=== PATIENT | male | born 1935 | race African-American/Black ===

== ENCOUNTER 2018-08-17 09:53 | Emergency (ER) | payer MEDICARE ==
[~2018-08-17] VITALS: Ht 170.2 cm; Wt 68.0 kg
[2018-08-17] MEDS ORDERED: FAMOTIDINE 20MG/2ML VIAL IV ONE (12:30)
[2018-08-17] MEDS ORDERED: DIPHENHYDRAMINE 50MG/ML VIAL IV ONE (12:30)
[2018-08-17] MEDS ORDERED: METHYLPREDNISOLONE SOD SUCC 125 MG/2 ML VIAL IV ONE (12:30)
[2018-08-17 13:05] LABS: BASOPHILS % 0.4 % (0.0-2.0); EOSINOPHILS % 0.2 % (0.0-5.0); HEMOGLOBIN. 12.5 g/dL (14.0-18.0); LYMPHOCYTES % 15.6 % (20.0-50.0); MEAN CORPUSCULAR HEMOGLOBIN 28.8 pg (28.0-32.0); MEAN CORPUSCULAR VOLUME 85.2 fL (80.0-94.0); MEAN PLATELET VOLUME 7.9 fl (7.4-10.4); MONOCYTES % 11.2 % (2.0-8.0); NEUTROPHILS % 72.6 % (40.0-76.0); PLATELET 220 x1000/uL (130-400); RED BLOOD CELL COUNT 4.34 mill/uL (4.7-6.1); RED CELL DISTRIBUTION WIDTH 13.6 % (11.6-14.6)
[2018-08-17 13:08] LABS: CHLORIDE 107 mEq/L (98-107)
[2018-08-17 13:11] LABS: PROTHROMBIN TIME 10.6 sec (9.6-11.0)
[2018-08-17 15:42] VITALS: BP 126/65
== END 2018-08-17 16:15 | disposition home or self-care (01) ==
LOC: ER 09:53
DX: T78.3XXA Angioneurotic edema, initial encounter (principal); T88.8XXA Other specified complications of surgical and medical care, not elsewhere classified, initial encounter; E78.00 Pure hypercholesterolemia, unspecified; I10 Essential (primary) hypertension
CPT/HCPCS: 36415; 80053; 85025; 85610; 86850; 86870; 86900; 86901; 96374; 96375; 99283; J1200; J2930; J3490

== ENCOUNTER 2019-03-19 09:21 | Inpatient (IN) | payer MEDICARE ==
[~2019-03-19] VITALS: Ht 170.2 cm; Wt 46.3 kg
[~2019-03-19 09:21] MED LIST: AMLO5TAB88 MT; ATOR20TA65 MT; CHOL500010 MT; LEVE500T98 MT; VIAG100 PO
[2019-03-19] MEDS ORDERED: PANTOPRAZOLE SODIUM 40 MG/VIAL IV STA (09:39)
[2019-03-19] MEDS ORDERED: FAMOTIDINE 20MG/2ML VIAL IV STA (09:39)
[2019-03-19] MEDS ORDERED: ONDANSETRON HCL 4MG/2ML INJ IV STA (09:39)
[2019-03-19 10:16] LABS: BASOPHILS % 0.4 % (0.0-2.0); EOSINOPHILS % 0.4 % (0.0-5.0); HEMATOCRIT. 32.4 % (42.0-52.0); HEMOGLOBIN. 10.9 g/dL (14.0-18.0); LYMPHOCYTES % 25.5 % (20.0-50.0); MEAN CORPUSCULAR HEMOGLOBIN 28.8 pg (28.0-32.0); MEAN CORPUSCULAR VOLUME 85.8 fL (80.0-94.0); MEAN PLATELET VOLUME 6.6 fl (7.4-10.4); MONOCYTES % 10.8 % (2.0-8.0); NEUTROPHILS % 62.9 % (40.0-76.0); PLATELET 361 x1000/uL (130-400); RED BLOOD CELL COUNT 3.77 mill/uL (4.7-6.1); RED CELL DISTRIBUTION WIDTH 16.9 % (11.6-14.6)
[2019-03-19 10:22] LABS: CHLORIDE 108 mEq/L (98-107); PROTHROMBIN TIME 10.7 sec (9.6-11.0)
[2019-03-19 10:26] LABS: ETHANOL BLOOD < 10 mg/dL
[2019-03-19 12:20] LABS: HEMATOCRIT 32.9 % (42.0-52.0); HEMOGLOBIN 11.1 g/dL (14.0-18.0); MEAN CORPUSCULAR HEMOGLOBIN 28.7 pg (28.0-32.0); MEAN CORPUSCULAR VOLUME 85.2 fL (80.0-94.0); PLATELET 364 x1000/uL (130-400); RED BLOOD CELL COUNT 3.86 mill/uL (4.7-6.1); RED CELL DISTRIBUTION WIDTH 16.2 % (11.6-14.6)
[2019-03-19] MEDS ORDERED: ONDANSETRON HCL 4MG/2ML INJ IV PRN (12:30)
[2019-03-19] MEDS ORDERED: ACETAMINOPHEN 325MG TABLET PO PRN (12:30)
[2019-03-19 14:42] LABS: HEMOGLOBIN 10.9 g/dL (14.0-18.0); MEAN CORPUSCULAR HEMOGLOBIN 28.7 pg (28.0-32.0); MEAN CORPUSCULAR VOLUME 86.8 fL (80.0-94.0); PLATELET 346 x1000/uL (130-400); RED BLOOD CELL COUNT 3.81 mill/uL (4.7-6.1); RED CELL DISTRIBUTION WIDTH 16.6 % (11.6-14.6)
[2019-03-19 16:08] VITALS: BP 110/68
[2019-03-19] MEDS ORDERED: PHEN100C4 PO (16:38)
[2019-03-19] MEDS ORDERED: LIP40 MT (16:38)
[2019-03-19] MEDS ORDERED: CLOP75TA4 PO (16:38)
[2019-03-19] MEDS ORDERED: CLON0.1T PO (16:38)
[2019-03-19] MEDS ORDERED: CLON0.5T MT (16:38)
[2019-03-19] MEDS ORDERED: KEPP250 MT (16:38)
[2019-03-19] MEDS ORDERED: LAMO25TA3 PO (16:38)
[2019-03-19 18:00] VITALS: BP 103/72
[2019-03-19 20:00] VITALS: BP 93/68
[2019-03-19 21:23] LABS: HEMATOCRIT 27.2 % (42.0-52.0); HEMOGLOBIN 9.5 g/dL (14.0-18.0)
[2019-03-19] MEDS: LEVETIRACETAM 500MG TABLET PO SCH (21:52)
[2019-03-19] MEDS: PANTOPRAZOLE SODIUM 40 MG/VIAL IV SCH (21:52)
[2019-03-20] VITALS: BP 91/60
[2019-03-20 04:00] VITALS: BP 105/69
[2019-03-20 06:23] LABS: BASOPHILS % 0.6 % (0.0-2.0); EOSINOPHILS % 0.2 % (0.0-5.0); HEMATOCRIT. 28.3 % (42.0-52.0); HEMOGLOBIN. 9.8 g/dL (14.0-18.0); LYMPHOCYTES % 21.9 % (20.0-50.0); MEAN CORPUSCULAR HEMOGLOBIN 29.3 pg (28.0-32.0); MONOCYTES % 7.9 % (2.0-8.0); NEUTROPHILS % 69.4 % (40.0-76.0); RED BLOOD CELL COUNT 3.33 mill/uL (4.7-6.1); RED CELL DISTRIBUTION WIDTH 15.8 % (11.6-14.6)
[2019-03-20 07:05] LABS: CHLORIDE 108 mEq/L (98-107)
[2019-03-20 07:31] LABS: PLATELET 284 x1000/uL (130-400)
[2019-03-20 08:00] VITALS: BP 105/74
[2019-03-20 09:05] LABS: CLARITY URINE CLEAR (CLEAR); COLOR URINE DARK YELLOW (YELLOW); KETONES URINE TRACE (NEGATIVE); LEUKOCYTE ESTERASE URINE NEGATIVE (NEGATIVE); NITRITE URINE NEGATIVE (NEGATIVE); OCCULT BLOOD URINE 2+ (NEGATIVE); PROTEIN URINE 1+ (NEGATIVE); SPECIFIC GRAVITY URINE 1.029 (1.005-1.030)
[2019-03-20] MEDS: LEVETIRACETAM 500MG TABLET PO SCH ×2 (09:23→21:57)
[2019-03-20] MEDS: PANTOPRAZOLE SODIUM 40 MG/VIAL IV SCH ×2 (09:23→21:57)
[2019-03-20 12:00] VITALS: BP 124/77
[2019-03-20] MEDS ORDERED: DIATR MEGLU/DIATRIZOATE SOLN 30ML PO SCH ×2 (15:00)
[2019-03-20] MEDS: CEFTRIAXONE 1 G PREMIX 50 ML IV SCH (15:14)
[2019-03-20 16:00] VITALS: BP 104/55
[2019-03-20 18:57] LABS: HEMATOCRIT 27.6 % (42.0-52.0); HEMOGLOBIN 9.4 g/dL (14.0-18.0); MEAN CORPUSCULAR HEMOGLOBIN 29.2 pg (28.0-32.0); PLATELET 315 x1000/uL (130-400); RED BLOOD CELL COUNT 3.21 mill/uL (4.7-6.1); RED CELL DISTRIBUTION WIDTH 15.9 % (11.6-14.6)
[2019-03-20 20:00] VITALS: BP 118/78
[2019-03-21] VITALS: BP 116/64
[2019-03-21 04:00] VITALS: BP 118/66
[2019-03-21 06:57] LABS: CHLORIDE 107 mEq/L (98-107)
[2019-03-21 07:08] LABS: BASOPHILS % 0.4 % (0.0-2.0); EOSINOPHILS % 0.3 % (0.0-5.0); HEMATOCRIT. 24.6 % (42.0-52.0); HEMOGLOBIN. 8.4 g/dL (14.0-18.0); LYMPHOCYTES % 18.9 % (20.0-50.0); MEAN CORPUSCULAR HEMOGLOBIN 29.3 pg (28.0-32.0); MEAN CORPUSCULAR VOLUME 85.6 fL (80.0-94.0); MEAN PLATELET VOLUME 7.1 fl (7.4-10.4); NEUTROPHILS % 69.4 % (40.0-76.0); PLATELET 285 x1000/uL (130-400); RED BLOOD CELL COUNT 2.88 mill/uL (4.7-6.1); RED CELL DISTRIBUTION WIDTH 15.6 % (11.6-14.6)
[2019-03-21 08:00] VITALS: BP 112/67
[2019-03-21] MEDS: LEVETIRACETAM 500MG TABLET PO SCH ×2 (09:42→22:14)
[2019-03-21] MEDS: PANTOPRAZOLE SODIUM 40 MG/VIAL IV SCH ×2 (09:42→22:13)
[2019-03-21 11:12] LABS: HEPATITIS B SURFACE ANTIGEN NEGATIVE
[2019-03-21 11:42] LABS: HEPATITIS A AB IGM NEGATIVE (NEGATIVE)
[2019-03-21 12:00] VITALS: BP 114/67
[2019-03-21] MEDS: CEFTRIAXONE 1 G PREMIX 50 ML IV SCH (15:22)
[2019-03-21 16:00] VITALS: BP 132/75
[2019-03-21] MEDS ORDERED: SORBITOL 70% SOLN 30ML PO NR ×3 (16:00→20:00)
[2019-03-21 19:40] LABS: HEMATOCRIT 25.8 % (42.0-52.0); HEMOGLOBIN 8.7 g/dL (14.0-18.0); MEAN CORPUSCULAR HEMOGLOBIN 29.3 pg (28.0-32.0); MEAN CORPUSCULAR VOLUME 86.5 fL (80.0-94.0); PLATELET 333 x1000/uL (130-400); RED BLOOD CELL COUNT 2.98 mill/uL (4.7-6.1); RED CELL DISTRIBUTION WIDTH 15.3 % (11.6-14.6)
[2019-03-21 20:00] VITALS: BP 100/60
[2019-03-22] VITALS (7 sets, daily range): BP systolic 11–130; BP diastolic 54–77
[2019-03-22 06:05] LABS: BASOPHILS % 0.3 % (0.0-2.0); EOSINOPHILS % 0.3 % (0.0-5.0); HEMATOCRIT. 25.8 % (42.0-52.0); HEMOGLOBIN. 8.8 g/dL (14.0-18.0); LYMPHOCYTES % 20.8 % (20.0-50.0); MEAN CORPUSCULAR HEMOGLOBIN 29.4 pg (28.0-32.0); MEAN CORPUSCULAR VOLUME 85.8 fL (80.0-94.0); MEAN PLATELET VOLUME 6.9 fl (7.4-10.4); MONOCYTES % 11.5 % (2.0-8.0); NEUTROPHILS % 67.1 % (40.0-76.0); PLATELET 303 x1000/uL (130-400); RED CELL DISTRIBUTION WIDTH 15.7 % (11.6-14.6)
[2019-03-22 06:12] LABS: CHLORIDE 111 mEq/L (98-107)
[2019-03-22 06:31] LABS: INR 1.1; PARTIAL THROMBOPLASTIN TIME 25.2 sec (23.4-31.0); PROTHROMBIN TIME 11.4 sec (9.6-11.0)
[2019-03-22] MEDS: PANTOPRAZOLE SODIUM 40 MG/VIAL IV SCH ×2 (08:28→21:55)
[2019-03-22] MEDS: LEVETIRACETAM 500MG TABLET PO SCH ×2 (08:28→21:55)
[2019-03-22] MEDS: CEFTRIAXONE 1 G PREMIX 50 ML IV SCH (13:38)
[2019-03-22] MEDS ORDERED: SIMETHICONE 40 MG/0.6 ML 30ML ONE (15:52)
[2019-03-22] MEDS ORDERED: MIDAZOLAM HCL 5 MG/5 ML VIAL IV PRN (16:01)
[2019-03-22] MEDS ORDERED: MIDAZOLAM HCL 5 MG/5 ML VIAL ONE (16:03)
[2019-03-22] MEDS ORDERED: FENTANYL CITRATE/PF 50MCG/ML 2ML VIAL ONE (16:03)
[2019-03-23] VITALS: BP 118/69
[2019-03-23 04:00] VITALS: BP 115/67
[2019-03-23 06:37] LABS: BASOPHILS % 0.3 % (0.0-2.0); EOSINOPHILS % 0.5 % (0.0-5.0); HEMATOCRIT. 25.1 % (42.0-52.0); HEMOGLOBIN. 8.5 g/dL (14.0-18.0); LYMPHOCYTES % 17.4 % (20.0-50.0); MEAN CORPUSCULAR HEMOGLOBIN 29.4 pg (28.0-32.0); MEAN CORPUSCULAR VOLUME 86.8 fL (80.0-94.0); MEAN PLATELET VOLUME 6.8 fl (7.4-10.4); MONOCYTES % 9.5 % (2.0-8.0); NEUTROPHILS % 72.3 % (40.0-76.0); PLATELET 315 x1000/uL (130-400); RED BLOOD CELL COUNT 2.89 mill/uL (4.7-6.1); RED CELL DISTRIBUTION WIDTH 15.5 % (11.6-14.6)
[2019-03-23 06:43] LABS: CHLORIDE 114 mEq/L (98-107)
[2019-03-23 09:06] VITALS: BP 118/70
[2019-03-23] MEDS: LEVETIRACETAM 500MG TABLET PO SCH ×2 (09:09→21:34)
[2019-03-23] MEDS: PANTOPRAZOLE SODIUM 40 MG/VIAL IV SCH ×2 (09:09→21:33)
[2019-03-23] MEDS: DEXT 5%/LACTATED RINGERS 1,000 ML IV SCH (11:00)
[2019-03-23 12:00] VITALS: BP 132/71
[2019-03-23] MEDS: SORBITOL 70% SOLN 30ML PO SCH ×2 (14:58→18:55)
[2019-03-23] MEDS: CEFTRIAXONE 1 G PREMIX 50 ML IV SCH (15:46)
[2019-03-23 16:00] VITALS: BP 130/55
[2019-03-23] MEDS ORDERED: BISACODYL 10MG SUPP PR SCH ×2 (16:45→22:00)
[2019-03-23] MEDS ORDERED: MINERAL OIL ENEMA 133ML PR SCH (18:00)
[2019-03-23] MEDS ORDERED: MAGNESIUM CITRATE 300ML SOLUTION PO SCH (18:00)
[2019-03-23 20:00] VITALS: BP 109/91
[2019-03-24] VITALS: BP 104/86
[2019-03-24] MEDS: DEXT 5%/LACTATED RINGERS 1,000 ML IV SCH (00:50)
[2019-03-24] MEDS: SORBITOL 70% SOLN 30ML PO SCH ×2 (00:55→06:29)
[2019-03-24 04:00] VITALS: BP 115/60
[2019-03-24 06:57] LABS: BASOPHILS % 0.2 % (0.0-2.0); EOSINOPHILS % 0.2 % (0.0-5.0); HEMATOCRIT. 26.2 % (42.0-52.0); HEMOGLOBIN. 8.7 g/dL (14.0-18.0); LYMPHOCYTES % 12.4 % (20.0-50.0); MEAN CORPUSCULAR HEMOGLOBIN 28.9 pg (28.0-32.0); MEAN CORPUSCULAR VOLUME 87.3 fL (80.0-94.0); MEAN PLATELET VOLUME 6.9 fl (7.4-10.4); MONOCYTES % 8.4 % (2.0-8.0); NEUTROPHILS % 78.8 % (40.0-76.0); PLATELET 366 x1000/uL (130-400); RED CELL DISTRIBUTION WIDTH 15.6 % (11.6-14.6)
[2019-03-24 07:09] LABS: CHLORIDE 121 mEq/L (98-107)
[2019-03-24] MEDS: LEVETIRACETAM 500MG TABLET PO SCH ×2 (07:51→21:20)
[2019-03-24 08:00] VITALS: BP 133/91
[2019-03-24] MEDS: PANTOPRAZOLE SODIUM 40 MG/VIAL IV SCH ×2 (08:25→21:20)
[2019-03-24] MEDS ORDERED: DEXT 5%/LACTATED RINGERS 1,000 ML IV SCH (09:00)
[2019-03-24] MEDS ORDERED: NA PHOS,M-B/NA PHOS,DI-BA ENEMA 118ML PR NR ×2 (11:45→14:45)
[2019-03-24 12:00] VITALS: BP 114/75
[2019-03-24] MEDS ORDERED: DEXTROSE 5% WATER 1,000 ML IV SCH (13:30)
[2019-03-24] MEDS: DEXTROSE 5% WATER 1,000 ML IV SCH (15:11)
[2019-03-24] MEDS: CEFTRIAXONE 1 G PREMIX 50 ML IV SCH (15:12)
[2019-03-24] MEDS ORDERED: FENTANYL CITRATE/PF 50MCG/ML 2ML VIAL ONE (16:21)
[2019-03-24] MEDS ORDERED: MIDAZOLAM HCL 5 MG/5 ML VIAL IV PRN (16:21)
[2019-03-24] MEDS ORDERED: MIDAZOLAM HCL 5 MG/5 ML VIAL ONE (16:21)
[2019-03-24 18:10] VITALS: BP 141/79
[2019-03-24 20:00] VITALS: BP 133/76
[2019-03-25] VITALS: BP 127/68
[2019-03-25 04:00] VITALS: BP 114/65
[2019-03-25] MEDS: DEXTROSE 5% WATER 1,000 ML IV SCH ×2 (05:44→18:23)
[2019-03-25 06:49] LABS: SODIUM URINE RANDOM 8 mEq/L
[2019-03-25 07:47] LABS: BASOPHILS % 0.4 % (0.0-2.0); EOSINOPHILS % 0.8 % (0.0-5.0); HEMATOCRIT. 24.3 % (42.0-52.0); LYMPHOCYTES % 15.6 % (20.0-50.0); MEAN CORPUSCULAR HEMOGLOBIN 29.2 pg (28.0-32.0); MEAN CORPUSCULAR VOLUME 88.5 fL (80.0-94.0); MEAN PLATELET VOLUME 6.9 fl (7.4-10.4); MONOCYTES % 10.8 % (2.0-8.0); NEUTROPHILS % 72.4 % (40.0-76.0); PLATELET 309 x1000/uL (130-400); RED BLOOD CELL COUNT 2.74 mill/uL (4.7-6.1); RED CELL DISTRIBUTION WIDTH 15.8 % (11.6-14.6)
[2019-03-25 08:00] VITALS: BP 120/67
[2019-03-25 08:22] LABS: CHLORIDE 125 mEq/L (98-107)
[2019-03-25 08:30] LABS: PHOSPHORUS 3.9 mg/dL (2.5-4.9)
[2019-03-25] MEDS: PANTOPRAZOLE SODIUM 40 MG/VIAL IV SCH ×2 (09:39→22:25)
[2019-03-25] MEDS: LEVETIRACETAM 500MG TABLET PO SCH ×2 (09:39→22:26)
[2019-03-25 12:00] VITALS: BP 144/66
[2019-03-25] MEDS ORDERED: KCL 20MEQ/100ML PREMIX 100 ML IV NR (14:00)
[2019-03-25 16:00] VITALS: BP 142/72
[2019-03-25] MEDS: CEFTRIAXONE 1 G PREMIX 50 ML IV SCH (17:40)
[2019-03-25 20:00] VITALS: BP_SYST 112; BP_SYST 115; BP_DIAS 58; BP_DIAS 72
[2019-03-26] VITALS: BP 115/72
[2019-03-26 04:00] VITALS: BP 99/70
[2019-03-26] MEDS: DEXTROSE 5% WATER 1,000 ML IV SCH ×2 (06:15→21:34)
[2019-03-26 06:59] LABS: BASOPHILS % 0.3 % (0.0-2.0); EOSINOPHILS % 0.7 % (0.0-5.0); HEMATOCRIT. 24.8 % (42.0-52.0); HEMOGLOBIN. 8.1 g/dL (14.0-18.0); LYMPHOCYTES % 13.4 % (20.0-50.0); MEAN CORPUSCULAR HEMOGLOBIN 28.9 pg (28.0-32.0); MEAN CORPUSCULAR VOLUME 88.1 fL (80.0-94.0); MONOCYTES % 7.8 % (2.0-8.0); NEUTROPHILS % 77.8 % (40.0-76.0); PLATELET 320 x1000/uL (130-400); RED BLOOD CELL COUNT 2.81 mill/uL (4.7-6.1); RED CELL DISTRIBUTION WIDTH 16.3 % (11.6-14.6)
[2019-03-26 07:48] LABS: CHLORIDE 121 mEq/L (98-107)
[2019-03-26 07:56] LABS: PHOSPHORUS 3.3 mg/dL (2.5-4.9)
[2019-03-26 08:00] VITALS: BP 128/69
[2019-03-26] MEDS: DOCUSATE SODIUM SUGAR FREE 100MG/10ML UDC NG SCH (10:09)
[2019-03-26] MEDS: LEVETIRACETAM 500MG TABLET PO SCH ×2 (10:09→21:33)
[2019-03-26] MEDS: PANTOPRAZOLE SODIUM 40 MG/VIAL IV SCH ×2 (10:10→21:33)
[2019-03-26 12:00] VITALS: BP 124/73
[2019-03-26] MEDS ORDERED: POTASSIUM CHLORIDE 20MEQ TABLET SR PO NR (13:30)
[2019-03-26] MEDS: CEFTRIAXONE 1 G PREMIX 50 ML IV SCH (14:52)
[2019-03-26 16:00] VITALS: BP 114/60
[2019-03-26 23:58] VITALS: BP 128/81
[2019-03-27 04:44] VITALS: BP 120/69
[2019-03-27 07:21] LABS: BASOPHILS % 0.3 % (0.0-2.0); EOSINOPHILS % 1.6 % (0.0-5.0); HEMATOCRIT. 26.8 % (42.0-52.0); HEMOGLOBIN. 8.9 g/dL (14.0-18.0); LYMPHOCYTES % 16.4 % (20.0-50.0); MEAN CORPUSCULAR HEMOGLOBIN 29.3 pg (28.0-32.0); MEAN CORPUSCULAR VOLUME 87.9 fL (80.0-94.0); MEAN PLATELET VOLUME 6.9 fl (7.4-10.4); MONOCYTES % 7.7 % (2.0-8.0); PLATELET 330 x1000/uL (130-400); RED BLOOD CELL COUNT 3.05 mill/uL (4.7-6.1); RED CELL DISTRIBUTION WIDTH 16.2 % (11.6-14.6)
[2019-03-27 07:31] LABS: CHLORIDE 116 mEq/L (98-107)
[2019-03-27 08:00] VITALS: BP 138/76
[2019-03-27] MEDS: LEVETIRACETAM 500MG TABLET PO SCH ×2 (09:10→21:34)
[2019-03-27] MEDS: DOCUSATE SODIUM SUGAR FREE 100MG/10ML UDC NG SCH (09:11)
[2019-03-27] MEDS: PANTOPRAZOLE SODIUM 40 MG/VIAL IV SCH ×3 (09:16→21:34)
[2019-03-27] MEDS: DEXTROSE 5% WATER 1,000 ML IV SCH ×2 (09:25→21:35)
[2019-03-27 12:00] VITALS: BP 127/76
[2019-03-27 16:00] VITALS: BP 134/75
[2019-03-27] MEDS: CEFTRIAXONE 1 G PREMIX 50 ML IV SCH (17:52)
[2019-03-27] MEDS: ZINC SULFATE 220 MG ( 50 ) CAPSULE PO SCH (17:59)
[2019-03-27] MEDS: ASCORBIC ACID 500 MG TABLET PO SCH (17:59)
[2019-03-27 20:00] VITALS: BP 144/81
[2019-03-28] VITALS: BP 136/82
[2019-03-28 04:00] VITALS: BP 130/85
[2019-03-28 06:40] LABS: BASOPHILS % 0.4 % (0.0-2.0); EOSINOPHILS % 2.3 % (0.0-5.0); HEMATOCRIT. 24.5 % (42.0-52.0); HEMOGLOBIN. 8.5 g/dL (14.0-18.0); LYMPHOCYTES % 14.9 % (20.0-50.0); MEAN CORPUSCULAR HEMOGLOBIN 30.5 pg (28.0-32.0); MONOCYTES % 6.8 % (2.0-8.0); NEUTROPHILS % 75.6 % (40.0-76.0); PLATELET 296 x1000/uL (130-400); RED BLOOD CELL COUNT 2.78 mill/uL (4.7-6.1); RED CELL DISTRIBUTION WIDTH 16.5 % (11.6-14.6)
[2019-03-28 07:35] LABS: CHLORIDE 114 mEq/L (98-107)
[2019-03-28 07:45] LABS: PHOSPHORUS 2.7 mg/dL (2.5-4.9)
[2019-03-28 08:00] VITALS: BP 115/67
[2019-03-28] MEDS: LEVETIRACETAM 500MG TABLET PO SCH (09:34)
[2019-03-28] MEDS: ZINC SULFATE 220 MG ( 50 ) CAPSULE PO SCH (09:34)
[2019-03-28] MEDS: ASCORBIC ACID 500 MG TABLET PO SCH (09:34)
[2019-03-28] MEDS: DOCUSATE SODIUM SUGAR FREE 100MG/10ML UDC NG SCH (09:34)
[2019-03-28] MEDS: PANTOPRAZOLE SODIUM 40 MG/VIAL IV SCH (09:34)
[2019-03-28 11:17] VITALS: BP 115/67
[2019-03-28 12:00] VITALS: BP 151/87
== END 2019-03-28 14:38 | DRG 377 ==
LOC: ER 09:21 → 5EST 11:09 → EDBEDREQSVC 11:15 → EDBEDREQ 11:15 → EDBEDREQSVC 12:06 → EDBEDREQ 12:06 → ENRESERV 12:32 → CANRESERV 12:32 → ENRESERV 15:12 → 7WST 03-22 13:00
PROVIDERS: ADMIT Internal Medicine; ATTEND Internal Medicine
PROC: 30233N1 Transfusion of Nonautologous Red Blood Cells into Peripheral Vein, Percutaneous Approach (ICD-10-PCS; 2019-03-19)
PROC: 0DJD8ZZ Inspection of Lower Intestinal Tract, Via Natural or Artificial Opening Endoscopic (ICD-10-PCS; principal; 2019-03-22)
PROC: 0DBH8ZZ Excision of Cecum, Via Natural or Artificial Opening Endoscopic (ICD-10-PCS; 2019-03-24)
PROC: 0DBN8ZZ Excision of Sigmoid Colon, Via Natural or Artificial Opening Endoscopic (ICD-10-PCS; 2019-03-24)
DX: K57.31 Diverticulosis of large intestine without perforation or abscess with bleeding (principal); E43 Unspecified severe protein-calorie malnutrition; E87.0 Hyperosmolality and hypernatremia; K62.6 Ulcer of anus and rectum; Z68.1 Body mass index [BMI] 19.9 or less, adult; E78.5 Hyperlipidemia, unspecified; E87.8 Other disorders of electrolyte and fluid balance, not elsewhere classified; F03.90 Unspecified dementia, unspecified severity, without behavioral disturbance, psychotic disturbance, mood disturbance, and anxiety; D64.9 Anemia, unspecified; K75.3 Granulomatous hepatitis, not elsewhere classified; E78.00 Pure hypercholesterolemia, unspecified; E87.6 Hypokalemia; G40.909 Epilepsy, unspecified, not intractable, without status epilepticus; N18.1 Chronic kidney disease, stage 1; K76.89 Other specified diseases of liver; I12.9 Hypertensive chronic kidney disease with stage 1 through stage 4 chronic kidney disease, or unspecified chronic kidney disease; K63.5 Polyp of colon; K64.8 Other hemorrhoids; K76.0 Fatty (change of) liver, not elsewhere classified; Z59.0 Homelessness; Z82.49 Family history of ischemic heart disease and other diseases of the circulatory system; Z86.73 Personal history of transient ischemic attack (TIA), and cerebral infarction without residual deficits; Z84.89 Family history of other specified conditions; Z79.899 Other long term (current) drug therapy
CPT/HCPCS: 36415; 71045; 74176; 76700; 80048; 80053; 80076; 80320; 81003; 82270; 82962; 83735; 83880; 83930; 83935; 84100; 84132; 84134; 84295; 84300; 84484; 85014; 85018; 85025; 85027; 86301; 86705; 86709; 86803; 86850; 86870; 86900; 86920; 87340; 88305; 92610; 93005; 96365; 96375; 99285; A6261; C1893; C9113; J0696; J2250; J2405; J3010; J3480; J3490; J7040; J7042; J7070; J7121; P9021; Q9963; G0480

== ENCOUNTER 2019-05-31 19:39 | Inpatient (IN) | payer MEDICARE, MEDICAID ==
[~2019-05-31] VITALS: Ht 170.2 cm; Wt 59.0 kg
[~2019-05-31 19:39] MED LIST changes: +CLON0.1T PO; +CLON0.5T MT; +LAMO25TA3 PO; +PHEN100C4 PO
[2019-05-31] MEDS ORDERED: SODIUM CHLORIDE 0.9% 1,000 ML IV ONE (20:20)
[2019-05-31 20:56] LABS: CHLORIDE 101 mEq/L (98-107)
[2019-05-31 21:01] LABS: BASOPHILS % 0.8 % (0.0-2.0); EOSINOPHILS % 0.7 % (0.0-5.0); HEMATOCRIT. 33.1 % (42.0-52.0); HEMOGLOBIN. 11.1 g/dL (14.0-18.0); LYMPHOCYTES % 17.8 % (20.0-50.0); MEAN CORPUSCULAR HEMOGLOBIN 30.1 pg (28.0-32.0); MEAN CORPUSCULAR VOLUME 89.6 fL (80.0-94.0); MONOCYTES % 9.6 % (2.0-8.0); NEUTROPHILS % 71.1 % (40.0-76.0); PLATELET 280 x1000/uL (130-400); RED BLOOD CELL COUNT 3.69 mill/uL (4.7-6.1); RED CELL DISTRIBUTION WIDTH 15.2 % (11.6-14.6)
[2019-05-31 21:46] LABS: CLARITY URINE CLEAR (CLEAR); COLOR URINE YELLOW (YELLOW); KETONES URINE NEGATIVE (NEGATIVE); LEUKOCYTE ESTERASE URINE NEGATIVE (NEGATIVE); NITRITE URINE NEGATIVE (NEGATIVE); OCCULT BLOOD URINE 3+ (NEGATIVE); PH URINE 5.5 (4.5-8.0); PROTEIN URINE TRACE (NEGATIVE); SPECIFIC GRAVITY URINE 1.017 (1.005-1.030); UROBILINOGEN URINE 0.2 E.U./dL (0.2-1.0)
[2019-06-01 06:53] LABS: BASOPHILS % 0.5 % (0.0-2.0); EOSINOPHILS % 0.9 % (0.0-5.0); HEMATOCRIT. 27.3 % (42.0-52.0); HEMOGLOBIN. 9.3 g/dL (14.0-18.0); LYMPHOCYTES % 20.4 % (20.0-50.0); MEAN CORPUSCULAR VOLUME 87.9 fL (80.0-94.0); MEAN PLATELET VOLUME 6.8 fl (7.4-10.4); MONOCYTES % 11.2 % (2.0-8.0); PLATELET 238 x1000/uL (130-400); RED CELL DISTRIBUTION WIDTH 14.8 % (11.6-14.6)
[2019-06-01 06:55] LABS: CHLORIDE 105 mEq/L (98-107)
[2019-06-01] MEDS: SODIUM CHLORIDE 0.9% 1,000 ML IV SCH ×2 (07:00→22:04)
[2019-06-01] MEDS ORDERED: ONDANSETRON HCL 4MG/2ML INJ IV PRN (16:45)
[2019-06-01] MEDS ORDERED: CLONIDINE 0.1MG TABLET PO PRN (16:45)
[2019-06-01] MEDS ORDERED: GUAIFENESIN 200MG/10ML SUGAR FREE UDC PO PRN (16:45)
[2019-06-01] MEDS ORDERED: ACETAMINOPHEN 325MG TABLET PO PRN (16:45)
[2019-06-01] MEDS ORDERED: HYDROCODONE/ACETAMINOPHEN 5/325MG TABLET PO PRN (18:06)
[2019-06-01] MEDS ORDERED: LEVETIRACETAM 250MG TABLET PO NR (18:07)
[2019-06-01] MEDS ORDERED: LAMOTRIGINE 25MG TABLET PO NR (18:08)
[2019-06-01] MEDS ORDERED: LACTULOSE 20G/30ML UDC PO NR (18:10)
[2019-06-01 21:10] VITALS: BP 129/64
[2019-06-01 21:20] VITALS: BP 129/64
[2019-06-01] MEDS: PHENYTOIN SODIUM EXTENDED 100MG CAPSULE PO SCH (22:03)
[2019-06-01] MEDS: CLONAZEPAM 0.5MG TABLET PO SCH (22:03)
[2019-06-01] MEDS: LACTULOSE 20G/30ML UDC PO SCH (22:03)
[2019-06-01] MEDS ORDERED: FOLI-43 PO (23:57)
[2019-06-01] MEDS ORDERED: TOPUD PO (23:57)
[2019-06-01] MEDS ORDERED: LORA-250 IM (23:57)
[2019-06-01] MEDS ORDERED: IPRA3AMP31 IH (23:57)
[2019-06-01] MEDS ORDERED: FERR325T6 PO (23:57)
[2019-06-01] MEDS ORDERED: HYDR-3281 PO (23:57)
[2019-06-02] VITALS: BP 118/76
[2019-06-02 04:00] VITALS: BP 139/79
[2019-06-02] MEDS: LACTULOSE 20G/30ML UDC PO SCH ×3 (05:36→21:14)
[2019-06-02 07:50] LABS: BASOPHILS % 0.5 % (0.0-2.0); EOSINOPHILS % 0.9 % (0.0-5.0); HEMATOCRIT. 30.2 % (42.0-52.0); HEMOGLOBIN. 10.1 g/dL (14.0-18.0); LYMPHOCYTES % 18.9 % (20.0-50.0); MEAN CORPUSCULAR HEMOGLOBIN 29.9 pg (28.0-32.0); MEAN PLATELET VOLUME 7.2 fl (7.4-10.4); MONOCYTES % 9.2 % (2.0-8.0); NEUTROPHILS % 70.5 % (40.0-76.0); PLATELET 257 x1000/uL (130-400); RED BLOOD CELL COUNT 3.39 mill/uL (4.7-6.1); RED CELL DISTRIBUTION WIDTH 14.8 % (11.6-14.6)
[2019-06-02 08:00] VITALS: BP 140/78
[2019-06-02 08:50] LABS: CHLORIDE 106 mEq/L (98-107)
[2019-06-02 08:55] LABS: PHOSPHORUS 3.3 mg/dL (2.5-4.9)
[2019-06-02] MEDS: PHENYTOIN SODIUM EXTENDED 100MG CAPSULE PO SCH ×3 (08:55→16:30)
[2019-06-02] MEDS: LAMOTRIGINE 25MG TABLET PO SCH (08:55)
[2019-06-02] MEDS: LEVETIRACETAM 250MG TABLET PO SCH ×2 (08:55→21:14)
[2019-06-02] MEDS: SODIUM CHLORIDE 0.9% 1,000 ML IV SCH (11:19)
[2019-06-02 12:00] VITALS: BP 127/67
[2019-06-02] MEDS ORDERED: POLY119P2 MT (14:51)
[2019-06-02 16:00] VITALS: BP 123/78
[2019-06-02] MEDS: CLONAZEPAM 0.5MG TABLET PO SCH (21:14)
[2019-06-02 22:29] VITALS: BP 113/66
[2019-06-03] VITALS: BP 124/67
[2019-06-03] MEDS: SODIUM CHLORIDE 0.9% 1,000 ML IV SCH ×2 (01:56→12:29)
[2019-06-03 04:00] VITALS: BP 130/69
[2019-06-03] MEDS: LACTULOSE 20G/30ML UDC PO SCH ×4 (06:00→21:00)
[2019-06-03 08:00] VITALS: BP 122/74
[2019-06-03] MEDS: LAMOTRIGINE 25MG TABLET PO SCH (08:20)
[2019-06-03] MEDS: PHENYTOIN SODIUM EXTENDED 100MG CAPSULE PO SCH ×3 (08:20→16:42)
[2019-06-03] MEDS: LEVETIRACETAM 250MG TABLET PO SCH ×2 (08:20→20:55)
[2019-06-03 12:00] VITALS: BP 129/70
[2019-06-03 15:57] VITALS: BP 134/90
[2019-06-03 20:00] VITALS: BP 136/77
[2019-06-03] MEDS: CLONAZEPAM 0.5MG TABLET PO SCH (20:55)
[2019-06-04] VITALS: BP 122/71
[2019-06-04] MEDS: SODIUM CHLORIDE 0.9% 1,000 ML IV SCH ×2 (02:51→12:58)
[2019-06-04 04:00] VITALS: BP 158/87
[2019-06-04] MEDS: LACTULOSE 20G/30ML UDC PO SCH (05:47)
[2019-06-04 08:00] VITALS: BP 133/71
[2019-06-04] MEDS: LEVETIRACETAM 250MG TABLET PO SCH ×2 (09:00→20:11)
[2019-06-04] MEDS: PHENYTOIN SODIUM EXTENDED 100MG CAPSULE PO SCH ×3 (09:00→17:02)
[2019-06-04] MEDS: LAMOTRIGINE 25MG TABLET PO SCH (09:00)
[2019-06-04 12:00] VITALS: BP 133/84
[2019-06-04 16:00] VITALS: BP 128/80
[2019-06-04] MEDS: CLONAZEPAM 0.5MG TABLET PO SCH (20:11)
[2019-06-04 21:19] VITALS: BP 124/69
[2019-06-05] VITALS: BP 126/70
[2019-06-05] MEDS: SODIUM CHLORIDE 0.9% 1,000 ML IV SCH ×2 (02:24→14:12)
[2019-06-05 04:00] VITALS: BP 132/89
[2019-06-05 08:01] VITALS: BP 136/76
[2019-06-05] MEDS: PHENYTOIN SODIUM EXTENDED 100MG CAPSULE PO SCH ×3 (08:49→17:49)
[2019-06-05] MEDS: LEVETIRACETAM 250MG TABLET PO SCH ×2 (08:49→21:30)
[2019-06-05] MEDS: LAMOTRIGINE 25MG TABLET PO SCH (08:49)
[2019-06-05 12:00] VITALS: BP 129/72
[2019-06-05 16:00] VITALS: BP 121/74
[2019-06-05 20:00] VITALS: BP 132/78
[2019-06-05] MEDS: CLONAZEPAM 0.5MG TABLET PO SCH (21:30)
[2019-06-06] VITALS: BP 158/89
[2019-06-06 04:00] VITALS: BP 159/80
[2019-06-06] MEDS: SODIUM CHLORIDE 0.9% 1,000 ML IV SCH ×2 (06:11→14:43)
[2019-06-06 08:00] VITALS: BP 137/79
[2019-06-06] MEDS: PHENYTOIN SODIUM EXTENDED 100MG CAPSULE PO SCH ×3 (09:02→17:31)
[2019-06-06] MEDS: LEVETIRACETAM 250MG TABLET PO SCH (09:02)
[2019-06-06] MEDS: LAMOTRIGINE 25MG TABLET PO SCH (09:02)
[2019-06-06 12:00] VITALS: BP 149/89
[2019-06-06 16:00] VITALS: BP 133/72
[2019-06-06 17:51] VITALS: BP 133/72
== END 2019-06-06 19:35 | DRG 391 ==
LOC: ER 19:39 → 5WST 06-01 01:56 → EDBEDREQ 06-01 01:59 → EDBEDREQDT 06-01 01:59 → EDBEDREQTM 06-01 01:59 → ENRESERV 06-01 19:05
PROVIDERS: ADMIT Internal Medicine; ATTEND Internal Medicine
DX: K59.00 Constipation, unspecified (principal); E43 Unspecified severe protein-calorie malnutrition; N40.0 Benign prostatic hyperplasia without lower urinary tract symptoms; E86.0 Dehydration; R31.9 Hematuria, unspecified; D64.9 Anemia, unspecified; E78.5 Hyperlipidemia, unspecified; F03.90 Unspecified dementia, unspecified severity, without behavioral disturbance, psychotic disturbance, mood disturbance, and anxiety; G40.909 Epilepsy, unspecified, not intractable, without status epilepticus; J84.10 Pulmonary fibrosis, unspecified; N28.1 Cyst of kidney, acquired; Z96.89 Presence of other specified functional implants; D71 Functional disorders of polymorphonuclear neutrophils; D72.821 Monocytosis (symptomatic); E78.00 Pure hypercholesterolemia, unspecified; K21.9 Gastro-esophageal reflux disease without esophagitis; I11.9 Hypertensive heart disease without heart failure; K76.89 Other specified diseases of liver; Z86.73 Personal history of transient ischemic attack (TIA), and cerebral infarction without residual deficits; Z74.01 Bed confinement status; Z79.899 Other long term (current) drug therapy
CPT/HCPCS: 36415; 71045; 74176; 80048; 80053; 81003; 83735; 83880; 84100; 84484; 85025; 93005; 97110; 97162; 97530; 99284; 99285; J7030

== ENCOUNTER 2019-08-26 16:40 | Inpatient (IN) | payer MEDICARE, MEDICAID ==
[~2019-08-26] VITALS: Ht 185.4 cm; Wt 69.9 kg
[~2019-08-26 16:40] MED LIST changes: -AMLO5TAB88 MT; -ATOR20TA65 MT; -CHOL500010 MT; -CLON0.5T MT; +FERR325T6 PO; +FOLI-43 PO; +HYDR-3281 PO; +IPRA3AMP31 IH; +LORA-250 IM; +POLY119P2 MT; +TOPUD PO; -VIAG100 PO
[2019-08-26] MEDS ORDERED: SODIUM CHLORIDE 0.9% 1000ML BAG (SEPSIS BOLUS) IV ONE (18:30)
[2019-08-26] MEDS ORDERED: PIPERACILLIN/TAZ 3.375G PREMIX 50 ML IV ONE (18:30)
[2019-08-26] MEDS ORDERED: LEVOFLOXACIN 750MG PREMIX 150 ML IV ONE (18:30)
[2019-08-26 19:41] LABS: EOSINOPHILS % 0.1 % (0.0-5.0); HEMATOCRIT. 42.1 % (42.0-52.0); HEMOGLOBIN. 13.5 g/dL (14.0-18.0); LYMPHOCYTES % 7.4 % (20.0-50.0); MEAN CORPUSCULAR HEMOGLOBIN 28.3 pg (28.0-32.0); MEAN CORPUSCULAR VOLUME 88.4 fL (80.0-94.0); MEAN PLATELET VOLUME 8.5 fl (7.4-10.4); MONOCYTES % 5.1 % (2.0-8.0); NEUTROPHILS % 87.4 % (40.0-76.0); PLATELET 247 x1000/uL (130-400); RED BLOOD CELL COUNT 4.77 mill/uL (4.7-6.1); RED CELL DISTRIBUTION WIDTH 15.2 % (11.6-14.6)
[2019-08-26 19:48] LABS: PROTHROMBIN TIME 11.1 sec (9.6-11.0)
[2019-08-26 19:52] LABS: CHLORIDE 121 mEq/L (98-107)
[2019-08-26] MEDS ORDERED: SODIUM CHLORIDE 0.45% 1,000 ML IV ONE (20:45)
[2019-08-26] MEDS ORDERED: CLONIDINE 0.1MG TABLET PO PRN (22:15)
[2019-08-26] MEDS ORDERED: DOCUSATE SODIUM 100MG CAPSULE PO PRN (22:15)
[2019-08-26] MEDS ORDERED: HYDROCODONE/ACETAMINOPHEN 5/325MG TABLET PO PRN (22:15)
[2019-08-26] MEDS ORDERED: IPRATROPIUM/ALBUTEROL 0.5-3(2.5)MG/3ML NEB NEB PRN (22:15)
[2019-08-26] MEDS ORDERED: ACETAMINOPHEN 325MG TABLET PO PRN (22:15)
[2019-08-26] MEDS ORDERED: ONDANSETRON HCL 4MG/2ML INJ IV PRN (22:15)
[2019-08-27 02:54] LABS: CLARITY URINE TURBID (CLEAR); COLOR URINE RED (YELLOW); KETONES URINE NEGATIVE (NEGATIVE); LEUKOCYTE ESTERASE URINE 2+ (NEGATIVE); NITRITE URINE NEGATIVE (NEGATIVE); OCCULT BLOOD URINE 3+ (NEGATIVE); PROTEIN URINE 3+ (NEGATIVE); SPECIFIC GRAVITY URINE 1.027 (1.005-1.030); UROBILINOGEN URINE 0.2 E.U./dL (0.2-1.0)
[2019-08-27 03:08] LABS: *AMPHETAMINES SCREEN URINE NEGATIVE (NEGATIVE); *BARBITURATES SCREEN URINE NEGATIVE (NEGATIVE)
[2019-08-27 03:09] LABS: *BENZODIAZEPINES SCREEN URINE NEGATIVE (NEGATIVE); *COCAINE SCREEN URINE NEGATIVE (NEGATIVE); CANNABINOID URINE SCREEN NEGATIVE (NEGATIVE); METHADONE URINE SCREEN NEGATIVE (NEGATIVE); OPIATES URINE SCREEN NEGATIVE (NEGATIVE); PHENCYCLIDINE URINE SCREEN NEGATIVE (NEGATIVE)
[2019-08-27 04:13] LABS: HEMATOCRIT. 37.6 % (42.0-52.0); HEMOGLOBIN. 11.7 g/dL (14.0-18.0); MEAN CORPUSCULAR HEMOGLOBIN 28.5 pg (28.0-32.0); MEAN CORPUSCULAR VOLUME 91.3 fL (80.0-94.0); MEAN PLATELET VOLUME 8.3 fl (7.4-10.4); PLATELET 205 x1000/uL (130-400); RED BLOOD CELL COUNT 4.11 mill/uL (4.7-6.1); RED CELL DISTRIBUTION WIDTH 15.8 % (11.6-14.6)
[2019-08-27] MEDS ORDERED: DEXTROSE 5% WATER 1,000 ML IV SCH (04:38)
[2019-08-27 04:40] LABS: LDL CHOLESTEROL 120 mg/dL (5-100)
[2019-08-27 04:41] LABS: CREATINE KINASE 231 IU/L (39-308); HDL CHOLESTEROL 65 mg/dL (40-59)
[2019-08-27 04:43] LABS: CREATINE KINASE MB FRACTION < 1.0 ng/mL (0.5-3.6)
[2019-08-27 08:07] LABS: PLATELET ESTIMATE NORMAL
[2019-08-27] MEDS ORDERED: PIPERACILLIN/TAZ 3.375G PREMIX 50 ML IV ONE (13:45)
[2019-08-27] MEDS ORDERED: LEVOFLOXACIN 500MG PREMIX 100 ML IV ONE (13:45)
[2019-08-27] MEDS: THIAMINE HCL 100MG TABLET PO SCH (15:00)
[2019-08-27] MEDS: ZINC SULFATE 220 MG ( 50 ) CAPSULE PO SCH (15:00)
[2019-08-27] MEDS ORDERED: HYDRALAZINE 20MG/ML VIAL IV SCH (15:15)
[2019-08-27] MEDS: DEXT 5%/0.2% NACL 1,000 ML IV SCH (15:30)
[2019-08-27] MEDS ORDERED: CEFTRIAXONE 1 G PREMIX 50 ML IV SCH (16:00)
[2019-08-27] MEDS ORDERED: DEXTROSE 50% WATER 50ML SYRINGE IV NR (16:15)
[2019-08-27] MEDS ORDERED: MORPHINE SULFATE 2 MG/ML CPJ (NOT FOR IM USE) IV PRN ×4 (17:09→17:30)
[2019-08-27] MEDS ORDERED: MORPHINE SULFATE 2 MG/ML CPJ (NOT FOR IM USE) IV ONE (17:23)
[2019-08-27] MEDS ORDERED: CLONIDINE 0.1MG TABLET PO PRN (17:30)
[2019-08-27] MEDS ORDERED: IPRATROPIUM/ALBUTEROL 0.5-3(2.5)MG/3ML NEB NEB PRN (17:30)
[2019-08-27] MEDS ORDERED: HYDROCODONE/ACETAMINOPHEN 5/325MG TABLET PO PRN (17:30)
[2019-08-27] MEDS ORDERED: DOCUSATE SODIUM 100MG CAPSULE PO PRN (17:30)
[2019-08-27] MEDS ORDERED: ACETAMINOPHEN 325MG TABLET PO PRN (17:30)
[2019-08-27] MEDS ORDERED: ONDANSETRON HCL 4MG/2ML INJ IV PRN (17:30)
[2019-08-27] MEDS ORDERED: LORAZEPAM 2MG/ML CPJ ONE (17:44)
[2019-08-27] MEDS ORDERED: LORAZEPAM 2MG/ML CPJ IV STA (17:56)
[2019-08-27] MEDS ORDERED: HYDRALAZINE 20MG/ML VIAL IV STA (17:56)
[2019-08-27] MEDS ORDERED: LORAZEPAM 2MG/ML CPJ IV NR (18:17)
[2019-08-27] MEDS ORDERED: HYDRALAZINE 20MG/ML VIAL IV NR (18:17)
[2019-08-27] MEDS: LEVETIRACETAM 500MG PREMIX 100 ML IV SCH (18:28)
[2019-08-27] MEDS ORDERED: DEXTROSE 50% WATER 50ML SYRINGE IV PRN (20:00)
[2019-08-27] MEDS ORDERED: LEVOFLOXACIN 250MG PREMIX 50 ML IV SCH (20:30)
[2019-08-27] MEDS: ASCORBIC ACID 500 MG TABLET PO SCH (21:00)
[2019-08-27] MEDS ORDERED: LEVETIRACETAM 500MG PREMIX 100 ML IV SCH (21:00)
[2019-08-27] MEDS ORDERED: ASCORBIC ACID 500 MG TABLET PO SCH (21:00)
[2019-08-27] MEDS ORDERED: ACETAMINOPHEN 650MG SUPP PR PRN (21:30)
[2019-08-27] MEDS: ACETAMINOPHEN 650MG SUPP PR PRN (21:45)
[2019-08-27 22:20] LABS: CHLORIDE 127 mEq/L (98-107)
[2019-08-27 22:30] LABS: CREATINE KINASE 170 IU/L (39-308)
[2019-08-27 22:32] LABS: CREATINE KINASE MB FRACTION 1.9 ng/mL (0.5-3.6)
[2019-08-27 23:00] VITALS: BP 101/59
[2019-08-27 23:00] LABS: C REACTIVE PROTEIN QUANT > 9.5 mg/L (0.0-3.0)
[2019-08-28] MEDS: DEXT 5%/0.2% NACL 1,000 ML IV SCH ×2 (03:39→12:31)
[2019-08-28 04:00] VITALS: BP 128/65
[2019-08-28 07:14] LABS: HEMATOCRIT. 29.8 % (42.0-52.0); MEAN CORPUSCULAR VOLUME 86.5 fL (80.0-94.0); MEAN PLATELET VOLUME 8.5 fl (7.4-10.4); PLATELET 181 x1000/uL (130-400); RED BLOOD CELL COUNT 3.45 mill/uL (4.7-6.1); RED CELL DISTRIBUTION WIDTH 14.5 % (11.6-14.6)
[2019-08-28 08:00] VITALS: BP 92/87
[2019-08-28 08:32] LABS: PHOSPHORUS 3.3 mg/dL (2.5-4.9)
[2019-08-28] MEDS: THIAMINE HCL 100MG TABLET PO SCH (09:00)
[2019-08-28] MEDS: ZINC SULFATE 220 MG ( 50 ) CAPSULE PO SCH (09:00)
[2019-08-28] MEDS ORDERED: METHYLPREDNISOLONE SOD SUCC 40 MG/ML VIAL IV SCH (09:00)
[2019-08-28] MEDS: ASCORBIC ACID 500 MG TABLET PO SCH (09:00)
[2019-08-28] MEDS: LEVETIRACETAM 500MG PREMIX 100 ML IV SCH (10:14)
[2019-08-28 12:00] VITALS: BP 111/62
[2019-08-28] MEDS ORDERED: LORAZEPAM 2MG/ML CPJ IV PRN (13:15)
[2019-08-28] MEDS ORDERED: MORPHINE SULFATE 250 MG in DEXT 5% WATER 240 ML IV PRN (14:00)
[2019-08-28 14:28] LABS: PLATELET ESTIMATE NORMAL
[2019-08-28 16:00] VITALS: BP 91/65
[2019-08-28] MEDS: ENOXAPARIN 30MG/0.3ML SYR SUBCUT SCH (18:45)
[2019-08-28 20:00] VITALS: BP 88/48
[2019-08-29] VITALS: BP 90/55
[2019-08-29 05:00] VITALS: BP 87/52
[2019-08-29 08:00] VITALS: BP 79/48
[2019-08-29] MEDS: ZINC SULFATE 220 MG ( 50 ) CAPSULE PO SCH (09:00)
[2019-08-29] MEDS: ENOXAPARIN 30MG/0.3ML SYR SUBCUT SCH (09:10)
[2019-08-29 12:00] VITALS: BP 79/39
[2019-08-29 16:00] VITALS: BP 84/62
[2019-08-29 20:00] VITALS: BP 88/55
[2019-08-30 00:23] VITALS: BP 82/48
[2019-08-30 04:51] VITALS: BP 73/42
[2019-08-30 08:00] VITALS: BP 76/43
[2019-08-30] MEDS: ACETAMINOPHEN 650MG SUPP PR PRN (09:10)
== END 2019-08-30 10:00 | disposition expired | DRG 871 ==
LOC: ER 16:40 → UNDOADMIN 19:25 → 7WST 19:25 → EDBEDREQSVC 21:44 → EDBEDREQTM 21:44 → EDBEDREQ 21:44 → EDBEDREQSVC 22:49 → EDBEDREQ 22:49 → EDBEDREQTM 22:49 → EDBEDREQSVC 23:57 → ENRESERV 08-27 13:36 → EDBEDREQSVC 08-27 18:01 → 7WST 08-27 19:25 → ENRESERV 08-27 19:43
PROVIDERS: ADMIT Internal Medicine; ATTEND Internal Medicine
DX: A41.89 Other specified sepsis (principal); U07.1 COVID-19; E43 Unspecified severe protein-calorie malnutrition; J96.01 Acute respiratory failure with hypoxia; E87.0 Hyperosmolality and hypernatremia; N17.9 Acute kidney failure, unspecified; N39.0 Urinary tract infection, site not specified; D72.810 Lymphocytopenia; E86.0 Dehydration; N28.1 Cyst of kidney, acquired; J06.9 Acute upper respiratory infection, unspecified; D64.9 Anemia, unspecified; I12.9 Hypertensive chronic kidney disease with stage 1 through stage 4 chronic kidney disease, or unspecified chronic kidney disease; E83.51 Hypocalcemia; G40.909 Epilepsy, unspecified, not intractable, without status epilepticus; Z66 Do not resuscitate; R47.02 Dysphasia; Z51.5 Encounter for palliative care; N18.1 Chronic kidney disease, stage 1; K76.89 Other specified diseases of liver; K76.0 Fatty (change of) liver, not elsewhere classified; F03.90 Unspecified dementia, unspecified severity, without behavioral disturbance, psychotic disturbance, mood disturbance, and anxiety; E78.5 Hyperlipidemia, unspecified; Z82.49 Family history of ischemic heart disease and other diseases of the circulatory system; Z86.73 Personal history of transient ischemic attack (TIA), and cerebral infarction without residual deficits; Z74.01 Bed confinement status; Z79.899 Other long term (current) drug therapy; Z68.20 Body mass index [BMI] 20.0-20.9, adult
CPT/HCPCS: 36415; 71045; 80048; 80053; 80061; 80305; 81003; 82550; 82553; 82962; 83605; 83615; 83735; 84100; 84145; 84443; 84484; 85025; 85379; 86140; 87420; 87635; 87804; 93005; 99291; J0360; J0696; J1650; J1953; J1956; J2060; J2270; J2543; J2920; J7030